=== PATIENT | male | born 1985 | race Two or more races ===

== ENCOUNTER 2017-04-28 19:42 | Inpatient (IN) | payer OTHER ==
[~2017-04-28] VITALS: Ht 175.3 cm; Wt 98.0 kg
--- NOTE | 2017-04-28 19:55 | PHYS DOC ---
Adult General Chief Complaint Chief Complaint: HYPERGLYCEMIA HPI HPI Patient is a 31 year old male who presents with blurry vision, generalized weakness, urinary frequency and excessive thirst. He states he symptoms been going on for last 2 weeks been getting worse. 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 He was called back today and tachycardia check at their office was read as "high". He denies any chest pain shortness of breath fevers chills nausea or vomiting. He denies any past medical history or allergies to medications. His cousin is being used as an mason tender restoration labor. Review of Systems Review of Systems Constitutional: Denies fever or chills [] Eyes: Positive for mild blurry vision, Denies redness, or eye pain [] HENT: Denies nasal congestion or sore throat [] Respiratory: Denies cough or shortness of breath [] Cardiovascular: No additional information not addressed in HPI [] GI: Denies abdominal pain, nausea, vomiting, bloody stools or diarrhea [] : Denies dysuria or hematuria [] Musculoskeletal: Denies back pain or joint pain [] Integument: Denies rash or skin lesions [] Neurologic: Denies headache, focal weakness or sensory changes [] Endocrine: Denies polyuria or polydipsia [] Current Medications Current Medications Current Medications Medications (Trade) Dose Ordered Sig/Khadar Start Time Stop Time Status Last Admin Dose Admin Sodium Chloride 1,000 ml @ 1,000 mls/hr 1X ONCE 04/28/17 20:45 04/28/17 21:44 Allergies Allergies Allergies Coded Allergies Type Severity Reaction Last Updated Verified No Known Drug Allergies 04/28/17 No Physical Exam Physical Exam Constitutional: Well developed, well nourished, no acute distress, non-toxic appearance. [] HENT: Normocephalic, atraumatic, bilateral external ears normal, oropharynx moist, no oral exudates, nose normal. [] Eyes: PERRLA, EOMI, conjunctiva normal, no discharge. [] Neck: Normal range of motion, no tenderness, supple, no stridor. [] Cardiovascular:Heart rate regular rhythm, no murmur [] Lungs & Thorax: Bilateral breath sounds clear to auscultation [] Abdomen: Bowel sounds normal, soft, no tenderness, no masses, no pulsatile masses. [] Skin: Warm, dry, no erythema, no rash. [] Back: No tenderness, no CVA tenderness. [] Extremities: No tenderness, no cyanosis, no clubbing, ROM intact, no edema. [] Neurologic: Alert and oriented X 3, normal motor function, normal sensory function, no focal deficits noted. [] Psychologic: Affect normal, judgement normal, mood normal. [] Current Patient Data Vital Signs Vital Signs Date Time Temp Pulse Resp B/P (MAP) Pulse Ox O2 Delivery O2 Flow Rate FiO2 04/28/17 19:56 99.6 91 17 151/90 (110) 95 Room Air 99.6 Lab Values Laboratory Tests Test 04/28/17 20:00 04/28/17 20:10 Urine Collection Type Unknown Urine Color Yellow Urine Clarity Clear Urine pH 6.0 Urine Specific [place] >=1.030 Urine Protein Negative mg/dL (NEG-TRACE) Urine Glucose (UA) >=1000 mg/dL (NEG) Urine Ketones (Stick) 15 mg/dL (NEG) Urine Blood Negative (NEG) Urine Nitrite Negative (NEG) Urine Bilirubin Negative (NEG) Urine Urobilinogen Dipstick 0.2 mg/dL (0.2 mg/dL) Urine Leukocyte Esterase Negative (NEG) Urine RBC Occ /HPF (0-2) Urine WBC 0 /HPF (0-4) Urine Bacteria 0 /HPF (0-FEW) Urine Opiates Screen Neg (NEG) Urine Methadone Screen Neg (NEG) Urine Barbiturates Neg (NEG) Urine Phencyclidine Screen Neg (NEG) Urine Amphetamine/Methamphetamine Neg (NEG) Urine Benzodiazepines Screen Neg (NEG) Urine Cocaine Screen Neg (NEG) Urine Cannabinoids Screen Neg (NEG) Urine Ethyl Alcohol Neg (NEG) White Blood Count 8.4 x10^3/uL (4.0-11.0) Red Blood Count 5.46 x10^6/uL (4.30-5.70) Hemoglobin 15.8 g/dL (13.0-17.5) Hematocrit 45.8 % (39.0-53.0) Mean Corpuscular Volume 84 fL (79-100) Mean Corpuscular Hemoglobin 29 pg (25-35) Mean Corpuscular Hemoglobin Concent 35 g/dL (31-37) Red Cell Distribution Width 12.5 % (11.5-14.5) Platelet Count 259 x10^3/uL (140-400) Neutrophils (%) (Auto) 62 % (31-73) Lymphocytes (%) (Auto) 30 % (24-48) Monocytes (%) (Auto) 7 % (0-9) Eosinophils (%) (Auto) 1 % (0-3) Basophils (%) (Auto) 1 % (0-3) Neutrophils # (Auto) 5.2 x10^3uL (1.8-7.7) Lymphocytes # (Auto) 2.5 x10^3/uL (1.0-4.8) Monocytes # (Auto) 0.5 x10^3/uL (0.0-1.1) Eosinophils # (Auto) 0.1 x10^3/uL (0.0-0.7) Basophils # (Auto) 0.0 x10^3/uL (0.0-0.2) Sodium Level 130 mmol/L (136-145) L Potassium Level 4.5 mmol/L (3.5-5.1) Chloride Level 92 mmol/L (98-107) L Carbon Dioxide Level 25 mmol/L (21-32) Anion Gap 13 (6-14) Blood Urea Nitrogen 19 mg/dL (8-26) Creatinine 1.0 mg/dL (0.7-1.3) Estimated GFR (Cockcroft-Gault) 88.3 Glucose Level 626 mg/dL (70-99) *H Calcium Level 9.8 mg/dL (8.5-10.1) Magnesium Level 2.0 mg/dL (1.8-2.4) Total Bilirubin 0.5 mg/dL (0.2-1.0) Direct Bilirubin 0.1 mg/dL (0.0-0.2) Aspartate Amino Transferase (AST) 57 U/L (15-37) H Alanine Aminotransferase (ALT) 152 U/L (16-63) H Alkaline Phosphatase 169 U/L (46-116) H Creatine Kinase 209 U/L (39-308) Creatine Kinase MB (Mass) 0.5 ng/mL (0.0-3.6) Creatine Kinase MB Relative Index 0.2 % (0-4) Troponin I Quantitative < 0.017 ng/mL (0.000-0.055) JG-Czd-G-Type Natriuretic Peptide 5 pg/mL (0-124) Total Protein 8.2 g/dL (6.4-8.2) Albumin 4.2 g/dL (3.4-5.0) Thyroid Stimulating Hormone (TSH) 2.621 uIU/mL (0.358-3.74) Laboratory Tests 04/28/17 20:10 Laboratory Tests 04/28/17 20:10 EKG EKG EKG shows sinus rhythm 3-87 beats were without any ST elevations or concerning T -wave inversions, left axis deviation, QTC 410 ms, as interpreted by me. Radiology/Procedures Radiology/Procedures One view chest x-ray did not show any focal consolidations, bony abnormalities, pneumothorax, as interpreted by me. Impressions: Hyperglycemia Course & Med Decision Making Course & Med Decision Making Pertinent Labs and Imaging studies reviewed. (See chart for details) EKG, chest x-ray are nonacute. Labs shows hyperglycemia with ketones without acidosis. Patient given 2 L normal saline and 10 units subcutaneous insulin. He is being admitted to the hospitalist in stable condition this time. Dragon Disclaimer Dragon Disclaimer This electronic medical record was generated, in whole or in part, using a voice recognition dictation system. Departure Departure Impression: Primary Impression: Hyperglycemia Disposition: ADMITTED INPATIENT Admitting Physician: Other Condition: STABLE ZEE MORALES MD Apr 28, 2017 19:55
[2017-04-28 20:29] LABS: BASO % 1 % (0-3); EOS % 1 % (0-3); HEMATOCRIT 45.8 % (39.0-53.0); HEMOGLOBIN 15.8 g/dL (13.0-17.5); LYMPH # 2.5 x10^3/uL (1.0-4.8); LYMPH % 30 % (24-48); MEAN CORPUSCULAR HEMOGLOBIN 29 pg (25-35); MEAN CORPUSCULAR HGB CONC 35 g/dL (31-37); MEAN CORPUSCULAR VOLUME 84 fL (79-100); MONO % 7 % (0-9); NEUT % 62 % (31-73); PLATELET COUNT 259 x10^3/uL (140-400); RED BLOOD COUNT 5.46 x10^6/uL (4.30-5.70); RED CELL DISTRIBUTION WIDTH 12.5 % (11.5-14.5); WHITE BLOOD COUNT 8.4 x10^3/uL (4.0-11.0)
[2017-04-28] MEDS ORDERED: IV NORMAL SALINE 1000ML BAG 1,000 ML IV ONE ×2 (20:30→20:45)
[2017-04-28 20:32] LABS: BILIRUBIN,URINE NEGATIVE (NEG); GLUCOSE,URINE >=1000 mg/dL (NEG); NITRITE,URINE NEGATIVE (NEG); PROTEIN,URINE NEGATIVE (NEG-TRACE); UROBILINOGEN,URINE 0.2 mg/dL (0.2 mg/dL)
[2017-04-28 20:38] LABS: BACTERIA,URINE 0 /HPF (0-FEW); BARBITURATES NEG (NEG); BENZODIAZEPINES NEG (NEG); CANNABINOIDS NEG (NEG); COCAINE NEG (NEG); METHADONE NEG (NEG); OPIATES NEG (NEG); PHENCYCLIDINE NEG (NEG); RBC,URINE OCC /HPF (0-2); WBC,URINE 0 /HPF (0-4)
--- NOTE | 2017-04-28 20:50 | EKG ---
[facility] [address] [place] [address] Test Date: 2017-04-28 Test Time: 20:28:36 Pat Name: ZULEIMA GUERRA Department: Room: Gender: M Avian Keeper: : 1985 Requested By: ZEE MORALES Order Number: [id number] Reading MD: Robbie Escalante Measurements Intervals [place] Rate: 87 P: 28 UT: 176 QRS: -9 QRSD: 86 T: 9 QT: 340 QTc: 410 Interpretive Statements SINUS RHYTHM NON-SPECIFIC ST/T CHANGES Electronically Signed On 05-03-2017 10:56:04 CDT by Robbie Escalante
[2017-04-28 20:53] LABS: ALBUMIN 4.2 g/dL (3.4-5.0); CALCIUM 9.8 mg/dL (8.5-10.1); DIRECT BILIRUBIN 0.1 mg/dL (0.0-0.2); GFR 88.3; POTASSIUM 4.5 mmol/L (3.5-5.1); TOTAL BILIRUBIN 0.5 mg/dL (0.2-1.0); TOTAL PROTEIN 8.2 g/dL (6.4-8.2)
[2017-04-28 21:02] LABS: CKMB MASS 0.5 ng/mL (0.0-3.6)
[2017-04-28] MEDS ORDERED: ONDANSETRON PF 4 MG/2 ML VIAL. IV PRN (21:30)
[2017-04-28] MEDS ORDERED: INSULIN REGULAR 100 UNIT/ML 10ML VIAL. SQ ONE (22:00)
[2017-04-28] MEDS ORDERED: METF500T9 PO (22:50)
[2017-04-28] MEDS ORDERED: SERT25TA4 PO (22:50)
[2017-04-28 22:51] VITALS: BP 134/91
[2017-04-28 22:53] VITALS: BP 134/91
[2017-04-29] MEDS ORDERED: DEXTROSE 50% 25 GM / 50ML DISP.SYRIN. IV PRN (00:15)
--- NOTE | 2017-04-29 01:35 | HP ---
ADMIT DATE: 04/29/2017 CHIEF COMPLAINT: Newly-diagnosed diabetes. HISTORY OF PRESENT ILLNESS: The patient is a 31-year-old [place] gentleman who presented to the Emergency Room from his primary care physician with newly-diagnosed diabetes and a finding of a blood sugar today of greater than 500. On further questioning, the patient actually had noted increased polydipsia and polyuria as well as some vague abdominal symptoms of weight loss that he cannot specify, but has noted mild nausea as well as occasional dizziness. He had seen his PCP recently and had been called back today to discuss the results of the finding that was elevated blood sugars. He was found with tachycardia prior as well, which is currently not present. When his repeat blood sugars were greater than 500 at the PCP's office, he was referred to the Emergency Room. PAST MEDICAL HISTORY: None. FAMILY HISTORY: Positive for diabetes in mother and siblings. SOCIAL HISTORY: Lives with 2 friends, smokes, also states that he quit today. He drinks beers occasionally, admits to about 3 beers once a month or so. ALLERGIES: No known drug allergies. HOME MEDICATIONS: Listed as metformin and sertraline, former was supposed to start today. REVIEW OF SYSTEMS: Positive as per HPI. Rest of organ system review shows no other complaints. PHYSICAL EXAMINATION: VITAL SIGNS: From today show a blood pressure of 134/91, heart rate of 78, respiratory rate at 18. He is afebrile. GENERAL: This is a 31-year-old [place] man, alert and oriented, in no acute distress. HEENT shows no scleral icterus, oral mucosa is moist. Neck is supple without lymphadenopathy. Lungs are clear to auscultation. Heart has regular rate and rhythm. Abdomen is obese, soft, nontender. Extremities show no edema. skin is warm, soft and dry. Neurologically, he is nonfocal. LABS: Glucose improved to 405. rest of labs reviewed. ASSESSMENT AND PLAN: Mr Morse is a 31 year-old [place] with newly-diagnosed diabetes mellitus. I do not have the hemoglobin A1c available at this time. I am not sure that it actually had been obtained at the PCP's office. We will obtain in the morning. In the meantime, we will start him on insulin sliding scale. We will increase his metformin to 1000 b.i.d. The patient would love to avoid needles as he is needle phobic. I discussed with him that although we may be able to avoid insulin, he will not be able to avoid blood sugar checks. We will have diabetic teaching done in hospital by the nurses. We will obtain additional labs including lipid profile in the morning as well. Ideally, he should be on aspirin, GERRY inhibitor, and statin as well. Unfortunately, I do not have a PCP's name. DENISHA BURNETT MD DR: KARINA/nts JOB#: [id number] / [id number]
[2017-04-29 02:52] VITALS: BP 140/79
--- NOTE | 2017-04-29 03:27 | ACF ---
Admission Forms Criteria GENERAL ADMISSION CRITERIA (Place 'X' for any and all applicable criteria): Admission is indicated for ANY ONE of the following: [ ]I. Hemodynamic instability as indicated by ANY ONE of the following(1)(2) (3)(4)(5): [ ]a) Vital sign abnormality not readily corrected by appropriate treatment within 12 to 24 hours indicated by ANY ONE of the following: [ ]i) Hypotension [ ]ii) Symptomatic Tachycardia unresponsive to treatment (eg , analgesia, fluids, sedation as indicated) [ ]iii) Orthostatic vital sign changes unresponsive to treatment (eg, fluids) [ ]b) Vital sign abnormality that is severe indicated by ANY ONE of the following: [ ]i) Inadequate perfusion indicated by ANY ONE of the following: [ ]1) Lactic acidosis (greater than 2 mmol/L) [ ]2) New abnormal capillary refill (greater than 3 seconds) [ ]3) Other metabolic acidosis (arterial pH less than 7.35) not otherwise explained [ ]4) Reduced urine output [ ]5) Altered mental status [ ]6) Myocardial Ischemia [ ]v) Mean arterial pressure[A] less than 60 mm Hg [ ]vi) Mean arterial pressure[A] less than 70 mm Hg after 30 minutes of appropriate treatment (eg, fluid resuscitation) [ ]vii) IV inotropic or vasopressor medication required to maintain adequate blood pressure or perfusion [ ]viii) Sustained heart rate greater than 120 beats per minute in adult or child 6 years or older[B]] [ ]II. Hypertension requiring inpatient treatment as indicated by ANY ONE of the following(6)(7)(8): [ ]a) SBP greater than 220 mm Hg or DBP greater than 120 mm Hg despite treatment [ ]b) SBP greater than 140 mm Hg or DBP greater than 100 mm Hg with evidence of acute end organ damage as indicated by ANY ONE of the following: [ ]i) Encephalopathy [ ]ii) Acute renal failure as indicated by new onset of ANY ONE of the following(9)(10)(11)(12)(13): [ ]1) A 3-fold rise in serum creatinine from baseline [ ]2) Serum creatinine greater than 4 mg/dL ( 354 micromoles/L) with acute rise greater than 0.5 mg/dL (44.2 micromoles/L) [ ]3) Reduction of more than 75% in estimated glomerular filtration rate from baseline [ ]4) Estimated glomerular filtration rate less than 35 mL/min/1.73m2 (0.59 mL/sec/1.73m2) in child up to 18 years of age [ ]5) Cessation of urine output indicated by ALL of the following: [ ]A. Adequate volume status [ ]B. Inadequate urine output as indicated by ANY ONE of the following: [ ]a. Urine output less than 0.3 mL/kg/hr for 24 hours [ ]b. Anuria (urine output less than 0.1 mL/kg/hr) for 12 hours [ ]iii) Aortic dissection [ ]iv) Myocardial ischemia [ ]v) Left ventricular heart failure [ ]vi) Retinal hemorrhage [ ]vii) Other significant finding [ ]c) Hypertension in child requiring inpatient treatment as indicated by ALL of the following(14)(15)(16): [ ]i) Outpatient treatment not effective, not available, or not appropriate [ ]ii) SBP or DBP greater than 95th percentile for age [ ]iii) Evidence of acute end organ damage as indicated by ANY ONE of the following: [ ]1) Altered mental status [ ]2) Acute renal failure as indicated by new onset of ANY ONE of the following(9)(10)(11)(12)(13): [ ]A. A 3-fold rise in serum creatinine from baseline [ ]B. Serum creatinine greater than 4 mg/dL (354 micromoles/L) with acute rise greater than 0.5 mg/dL (44.2 micromoles/L) [ ]C. Reduction of more than 75% in estimated glomerular filtration rate from baseline [ ]D. Estimated glomerular filtration rate less than 35 mL/min/1.73m2 (0.59 mL/sec/1.73m2)in child up to 18 years of age [ ]E. Cessation of urine output indicated by ALL of the following: [ ]a. Adequate volume status [ ]b. Inadequate urine output as indicated by ANY ONE of the following: [ ]1) Urine output less than 0.3 mL/kg/hr for 24 hours [ ]2) Anuria (urine output less than 0.1 mL/kg/hr) for 12 hours [ ]3) Severe headache [ ]4) Visual disturbance [ ]5) Retinal hemorrhage [ ]6) Other significant finding [ ]III. Acute cardiac or peripheral ischemia as indicated by ANY ONE of the following: [ ]a) Acute coronary syndrome(17)(18) [ ]b) Acute peripheral ischemia (eg, pulseless, cool, mottled, or cyanotic extremity)(19) [ ]IV. Cardiac arrhythmias or findings of immediate concern indicated by ANY ONE of the following(20)(21): [ ]a) Heart rhythms that are inherently dangerous or unstable indicated by ANY ONE of the following(22)(23)(24): [ ]i) Resuscitated ventricular fibrillation or cardiac arrest [ ]ii) Ventricular escape rhythm [ ]iii) Sustained ventricular tachycardia (30 seconds or more of ventricular rhythm at greater than 100 beats per minute) [ ]iv) Nonsustained ventricular tachycardia and ANY ONE of the following: [ ]1) Suspected cardiac ischemia as cause or consequence of ventricular tachycardia [ ]2) In setting of acute myocarditis [ ]b) Unstable cardiac conduction defects indicated by ANY ONE of the following(24)(25)(26): [ ]i) Type II second-degree atrioventricular block [ ]ii) Third-degree atrioventricular block [ ]iii) New-onset left bundle branch block with suspected myocardial ischemia [ ]c) Any heart rhythm and ANY ONE of the following(22)(23)(27)(28)( 29): [ ] i) Continuous long-term ECG monitoring needed (eg, initiation of drug requiring monitoring for more than 24 hours) [ ] ii) Patient has automatic implanted cardioverter defibrillator that is repeatedly firing, malfunctioning, or in need of immediate adjustment of settings beyond the scope of ambulatory or observation care. [ ]d) Heart rhythms of concern due to ANY ONE of the following: [ ]i) Hypotension [ ]ii) Respiratory distress [ ]iii) Association with other significant symptoms (eg, bradycardia with syncope or ongoing dizziness, supraventricular tachycardia with chest pain) (27)(28) (30) [ ] V. Severe heart failure as indicated by ANY ONE of the following ( 31)(32): [ ]a) Respiratory distress [ ]b) Hypotension [ ]c) Anasarca (refractory to outpatient therapy) [ ]d) Cardiac arrhythmias of immediate concern [ ]e) Myocardial ischemia [ ]. Respiratory abnormalities, including ANY ONE of the following(33)(34) (35)(36): [ ]a) Respiratory rate greater than 30 breaths per minute unresponsive to treatment [A] [ ]b) New saturation of arterial oxygen less than 90% [ ]c) New partial pressure of carbon dioxide greater than 44 mm Hg ( 5.9 kPa) [ ]d) Supplemental oxygen or respiratory treatments needed that are new or not performable at other levels of care [ ]e) New-onset cyanosis [ ]f) Inability to protect airway [ ]g) Chronic lung disease with severe deterioration (not responsive to emergency and observation care treatment as appropriate) as indicated by ANY ONE of the following(34)(36 ): [ ]i) SaO2 5% below baseline in patient with chronic hypoxemia [ ]ii) New requirement for supplemental oxygen to keep SaO2 at baseline or acceptable level [ ]iii) Required supplemental oxygen performable only in acute inpatient setting [ ]iv) Severe airflow or ventilation abnormalities [ ]v) Previously mobile patient unable to walk between rooms [ ]vi Inability to eat or sleep due to dyspnea [ ]vii) Rapid rate of exacerbation onset [ ]viii) Altered mental status ]VII. Severe airflow or ventilation abnormalities (not responsive to emergency and observation care treatment as appropriate) as indicated by ANY ONE of the following(33)(34)(35)(37): [ ]a) PCO2 greater than 42 mm Hg (5.6 kPa) and pH less than 7.35 (new ) [ ]b) Documented PCO2 increased more than 5 mm Hg (0.7 kPa) from disease baseline [ ]c) Airflow measurements [B] less than 60% of previous best or predicted (eg, peak expiratory flow rate less than 300 L/minute) despite intensive emergent treatment [C] [ ]d) Required respiratory treatments that are performable only in acute inpatient setting [ ]VIII. Impending or actual respiratory arrest ( Also use Respiratory Failure GRG for severe respiratory disease and long-term mechanical ventilation patients) [ ]IX. Neurologic abnormalities, including ANY ONE of the following: [ ]a) New findings that suggest ANY ONE of the following: [ ]i) INFANT BABYSIT[employer] infection(38) [ ]ii) Cerebral bleeding, ischemia, or vasospasm(39)(40) [ ]iii) Increased intracranial pressure, hydrocephalus, or cerebral edema(41)(42)(43) [ ]iv) Spinal cord injury(44) [ ]b) Uncontrolled seizures(45) [ ]c) New-onset coma (eg, Becki coma scale score less than 9) or unexplained abnormal mental status (eg, Becki coma scale score less than 14) [D](41)(46)(47) [ ]X. New-onset severe neurologic findings requiring inpatient care; examples include(42)(48)(49): [ ]a) Papilledema [ ]b) Cerebral edema [ ]c) Mass effect on CT scan [ ]XI. Suspected acute intra-abdominal process with peritoneal signs, abdominal mass, or similar findings (50)(51)(52) [ ]XII. Severe physiologic disorder remaining after emergency or observation level care (as appropriate) as indicated by ANY ONE of the following (53): [ ]a) Significant dehydration [ ]b) Diabetic ketoacidosis [ ]c) Hyperglycemic hyperosmolar state (eg, osmolality greater than 320 mOsm/kg (mmol/kg) [ ]d) Hypoglycemia [ ]e) Other (new) acid-base disorder with pH less than 7.35 or greater than 7.5(54) [ ]f) Thyroid storm (55) [ ]g) Myxedema coma (55) [ ]XIII. Abdominal abnormalities with ANY ONE of the following(56)(57): [ ]a) Absent bowel sounds with complete ileus [ ]b) Signs of intestinal obstruction or peritonitis [E] [ ]c) Nausea and vomiting that cannot be controlled with outpatient or observation care [ ]XIV. Acute renal failure as indicated by new onset of ANY ONE of the following(9)(10)(11)(12)(13): [ ]a) A 3-fold rise in serum creatinine from baseline [ ]b) Serum creatinine greater than 4 mg/dL (354 micromoles/L) with acute rise greater than 0.5 mg/dL (44.2 micromoles/L) [ ]c) Reduction of more than 75% in estimated glomerular filtration rate from baseline [ ]d) Estimated glomerular filtration rate less than 35 mL/min/ 1.73m2 (0.59 mL/sec/1.73m2) in child up to 18 years of age [ ]e) Cessation of urine output indicated by ALL of the following: [ ]i) Adequate volume status [ ]ii) Inadequate urine output as indicated by ANY ONE of the following: [ ]1) Urine output less than 0.3 mL/kg/hr for 24 hours [ ]2) Anuria (urine output less than 0.1 mL/kg/hr) for 12 hours [ ]XV. Significant uremic complications as indicated by ANY ONE of the following(58)(59)(60): [ ]a) Outpatient therapy is ineffective or not feasible for ANY ONE of the following: [ ]i) Severe heart failure [ ]ii) Severehypertension [ ]iii) Pleural effusion [ ]iv) Pericarditis or pericardial effusion [ ]b) Cardiac arrhythmias of immediate concern [ ]c) Intractable nausea or vomiting [ ]d) Recurrent seizures [ ]e) Encephalopathy [ ]f) Bleeding abnormalities (eg, platelet dysfunction) with active (eg, gastrointestinal) bleeding [ ]g) Dialysis indicated before long-term access or ambulatory arrangements can be made [ ]h) Significant metabolic or electrolyte abnormalities (eg, severe acidosis or hyperkalemia) [ ]XVI. High fever or other high-risk infection situation as indicated by ANY ONE of the following(61)(62)(63)(64): [ ]a) Outpatient and observation care antimicrobial treatment unavailable, not effective, or not appropriate [ ]b) Documented bacteremia [ ]c) Temperature greater than 40.5 degrees C (104.9 degrees F) ( oral) [ ]d) Temperature greater than 39.5 degrees C (103.1 degrees F) ( oral) or less than 36 degrees C (96.8 degrees F) (rectal) that does not respond to e treatment and observation care [ ] XVII. Temperature less than 95 degrees F (35 degrees C)(rectal)(65) [ ] XVIII. Severe nutritional abnormalities as indicated by ALL of the following (66)(67): [ ]a) Inability to tolerate or establish sufficient oral or other enteral nutrition in outpatient setting [ ]b) Parenteral nutrition regimen need that must be implemented on inpatient basis [ ] XIX. Severe electrolyte abnormalities indicated by ALL of the following(68) (69)(70): [ ]a) Electrolytes and associated findings are not as expected for patient baseline or acceptable treatment effects. [ ]b) Severe abnormalities indicated by ANY ONE of the following: [ ]i) Sodium less than 130 mEq/L (mmol/L) (new) [ ]ii)Sodium less than 135 mEq/L (mmol/L) with ANY ONE of the following: [ ]1) Uncorrectable (to near normal or chronic baseline) after trial of outpatient and emergency treatment [ ]2) Altered mental status [ ]3) Seizures [ ]4) Severe medical etiology requiring inpatient management (eg, heart failure, hypovolemia) [ ]iii) Sodium greater than 155 mEq/L (mmol/L) [ ]iv) Sodium greater than 150 mEq/L (mmol/L) with ANY ONE of the following: [ ]1) Uncorrectable (to near normal or chronic baseline) with outpatient and emergency treatment [ ]2) Altered mental status [ ]3) Seizures [ ]4) Severe medical etiology (eg, hypovolemia, diabetes insipidus) [ ]v) Potassium less than 2.5 mEq/L (mmol/L) despite outpatient and emergency treatment [ ]vi) Potassium less than 3 mEq/L (mmol/L) with ANY ONE of the following: [ ]1) Weakness [ ]2) Cardiac abnormality (eg, arrhythmia, conduction disturbance) [ ]3) Cardiac ischemia [ ]4) Ileus [ ]5) Ongoing medical cause requiring inpatient management (eg, acute renal wasting or SIADH) [ ]6) Other severe symptoms [ ]vii) Potassium greater than 6.5 mEq/L (mmol/L) [ ]viii) Potassium greater than 5 mEq/L (mmol/L) with ANY ONE of the following: [ ]1) Uncorrectable (to near normal or chronic baseline) with outpatient and emergency treatment [ ]2) Severe ECG findings [F] [ ]3) Acute worsening of renal failure (creatinine greater than 2.5 mg/dL (221 micromoles/L) or significant elevation for age and size) [ ]4) Severe weakness [ ]5) Severe medical etiology (eg, hemolysis, infection, drug overdose) [ ]ix) Calcium less than 7 mg/dL (1.75 mmol/L) despite outpatient and emergency treatment (72) [ ]x) Calcium less than 8 mg/dL (2 mmol/L) with significant symptoms or findings; examples include(72): [ ]1) Altered mental status [ ]2) Muscle spasms [ ]3) Seizures [ ]4) Breathing difficulty [ ]5) Cardiac abnormality (eg, arrhythmia or conduction disturbance) [ ]xi) Calcium greater than 14 mg/dL (3.5 mmol/L)(72) [ ]xii) Calcium greater than 12 mg/dL (3 mmol/L) with ANY ONE of the following(72): [ ]1) Uncorrectable (to near normal or chronic baseline) with outpatient and emergency treatment [ ]2) Significant dehydration or hypovolemia as indicated by ALL of the following(70)(73)(74): [ ]A. Not resolved with initial treatments [ ]B. Clinically significant dehydration as indicated by ANY ONE of the following: [ ]a. Vomiting refractory to outpatient treatment (ie, precluding oral rehydration) [ ]b. Inability to drink [ ]c. Hypernatremia or other electrolyte abnormality unable to be corrected with outpatient and emergency treatment [ ]d. Failure to remain hydrated with outpatient therapy [ ]e. Reduced urine output [ ]f. Hypotension [ ]g. Serious cause for dehydration requiring acute hospitalization (eg, bowel obstruction, increased intracranial pressure, infectious cause) [ ]h. Child with ANY ONE of the following(75): [ ]1) Severe abdominal tenderness [ ]2) Adequate care not available at home [ ]3) Severe dehydration ( greater than 9% loss of body weight) [ ]4) Significant symptoms or findings; examples include: [ ]A. Altered mental status [ ]B. Cardiac abnormality (eg, arrhythmia, conduction disturbance) [ ]C. Malignant etiology requiring inpatient treatment [ ]xiii) Phosphorus less than 1 mg/dL (0.32 mmol/L) [ ]xiv) Phosphorus less than 1.5 mg/dL (0.48 mmol/L) with ANY ONE of the following: [ ]1) Patient unresponsive to outpatient and emergency treatment [ ]2) Significant symptoms or findings; examples include: [ ]A. Weakness [ ]B. Altered mental status [ ]C. Breathing difficulty [ ]D. Seizures [ ]E. Rhabdomyolysis [ ]xv) Phosphorus greater than 10 mg/dL (3.2 mmol/L) [ ]xvi) Phosphorus greater than 4.5 mg/dL (1.45 mmol/L) (new) with ANY ONE of the following: [ ]1) Severe medical etiology (eg, crush injury, acute renal failure) [ ]2) Associated hypocalcemia with significant findings; examples include: [ ]A. Neurologic symptoms [ ]B. Altered mental status [ ]C. Muscle spasms [ ]D. Seizures [ ]E. Breathing difficulty [ ]F. Cardiac abnormality (eg, arrhythmia, conduction disturbance) [ ]xvii) Magnesium less than 1 mg/dL (0.41 mmol/L) [ ]xviii) Magnesium less than 1.5 mg/dL (0.62 mmol/L) with ANY ONE of the following: [ ]1) Patient unresponsive to outpatient and emergency treatment [ ]2) Associated hypocalcemia with significant findings; examples include: [ ]A. Altered mental status [ ]B. Muscle spasms [ ]C. Seizures [ ]D. Breathing difficulty [ ]E. Cardiac abnormality (eg, arrhythmia , conduction disturbance) [ ]3) Associated hypokalemia (potassium less than 3 mEq/L (mmol/L)) with risk of arrhythmia [ ]xix) Magnesium greater than 4 mEq/L (2 mmol/L) [ ]xx) Magnesium greater than 2.5 mEq/L (1.25 mmol/L) with significant symptoms or findings; examples include: [ ]1) Weakness [ ]2) Altered mental status [ ]3) Cardiac abnormality (eg, arrhythmia, conduction disturbance) [ ]4) Breathing difficulty [ ]5) Severe medical etiology (eg, renal failure, hypovolemia) [ ]xxi) Uric acid greater than 20 mg/dL (1190 micromoles/L)(76) [ ]xxii) Uric acid greater than 8 mg/dL (476 micromoles/L) with significant symptoms or findings of tumor lysis syndrome; examples include(76): [ ]1) Creatinine greater than 1.5 times upper limit of normal [ ]2) Cardiac abnormality (eg, arrhythmia, conduction disturbance) [ ]3) Seizure [ ]XX. Acute blood loss causing significant abnormality as indicated by ANY ONE of the following(77)(78): [ ]a) Hemoglobin less than 10 g/dL (100 g/L) (not baseline) [ ]b) Hematocrit less than 30% (0.30) (not baseline) [ ]c) Repeat hematocrit decreased more than 2% (0.02) [ ]d) Uncontrolled bleeding [ ]XXI. Severe anemia indicated by ANY ONE of the following(78)(79): [ ]a) Altered mental status [ ]b) Chest pain [ ]c) Exertional dyspnea [ ]d) Syncope [ ]e) Other findings suggesting inadequate perfusion [ ]f) Treatment with transfusion or volume replacement is ineffective at resolving ANY ONE of the following [G]: [ ]i) Tachycardia for age [ ]ii) Orthostatic vital sign changes as indicated by ANY ONE of the following(80): [ ]1) Fall in SBP of 20 mm Hg or more 1 to 3 minutes after patient sits or stands from recumbent position [ ]2) Fall in DBP of 10 mm Hg or more 1 to 3 minutes after patient sits or stands from recumbent position [ ]XXII. High-risk low platelet count as indicated by ANY ONE of the following( 81)(82): [ ]a) Severe or life-threatening bleeding (eg, intracranial, major gastrointestinal, or extensive mucosal bleeding), with any reduced platelet count [ ]b) Platelet count less than 20,000/mm3 (20 x109/L) with any active bleeding [ ]c) Platelet count less than 10,000/mm3 (10 x109/L) with minor purpura or petechiae [ ]d) Platelet count less than 5000/mm3 (5 x109/L) [ ]e) Low platelet count with hemolytic anemia [ ]XXIII. Disseminated intravascular coagulation(77)(83) [ ]XXIV. Severe adverse drug or systemic toxin reaction requiring inpatient treatment; examples include(84)(85): [ ]a) Serotonin syndrome(86) [ ]b) Neuroleptic malignant syndrome(86) [ ]c) Cholinergic syndrome with severe symptoms (eg, bronchorrhea, weakness, mental status changes, seizures) [ ]d) Sympathetic syndrome with severe symptoms (eg, seizures, mental status changes, cardiac dysrhythmias) [ ]e) Anticholinergic syndrome [ ]XXV. Severe pain requiring acute inpatient management as indicated by ALL of the following (87)(88)(89): [ ]a) Continuous or frequent (eg, every 2 to 4 hours) parenteral analgesics required [H] [ ]b) Rapid improvement expected from treatment or acute intervention (eg, surgery, anesthesia procedure) [ ]XXVI.Severe behavioral health issues judged unmanageable at a lower level of care (eg, residential) in a patient who is ANY ONE of the following(91) [ ]a) Acutely suicidal [ ]b) A danger to self (eg, self-mutilating or suicidal behavior) [ ]c) A danger to others (eg, assaultive or homicidal behavior) [ ]d) Incapacitated because of grave disability (eg, inability to provide for self at lower level of care) (92) [X]XXVII. Inpatient monitoring needed; examples include(1)(3)(87)(93)(94)(95)(96 ): [X]a) Vital signs, neurologic signs, or vascular checks more frequently than every 4 hours [ ]b) Cardiac or respiratory monitoring beyond the scope (eg, over 24 hours) of observation care [ ]c) Pulmonary artery catheter monitoring [ ]d) Suspected compartment syndrome(97) (98) [ ]e) Cerebral bleeding, hydrocephalus, or vasospasm monitoring [ ]f) Increased intracranial pressure or cerebral edema monitoring [ ]g) monitoring [ ]XXVIII. Treatment requiring inpatient care; examples include: [ ]a) IV fluid to replace significant ongoing losses (greater than 3 L/m2 per day)(53) [ ]b) High concentration oxygen (greater than 40%)(33)(99)(100) [ ]c) Frequent respiratory therapy (more frequently than every 4 hours) to maintain airflow rates greater than 60% of baseline(33)(99)(100) [ ]d) Epidural analgesia(87) [ ]e) IV anticoagulation, vasoactive, or antiarrhythmic medication(19 )(23) [ ]f) Acute thrombolytics (generally require 24 hours of observation )(101)(102) [ ]XXIX. Emergency procedures needed; examples include: [ ]a) Emergency inpatient surgery [ ]b) Temporary pacemaker placement(103) [ ]c) Chest tube placement with active evacuation (eg, suction, drainage)(104) [ ]d) Emergent cardioversion(105) [ ]e) Emergent cardiac or vascular procedures (eg, cardiac catheterization, angioplasty) (17)(18) [ ]f) Emergent dialysis access placement and institution(10)(106) [ ]g) Emergent pericardiocentesis(107) [ ]h) Emergent plasmapheresis or leukapheresis(83) [ ]i) Emergent tracheostomy The original [employer] content created by [employer] has been revised. The portions of the content which have been revised are identified through the use of italic text or in bold, and [email or web address] has neither reviewed nor approved the modified material. All other unmodified content is copyright [employer]. Please see references footnoted in the original [facility] edition 2016 Admission Criteria Met?: Yes SRINIVASA SHEPHERD Apr 29, 2017 03:27
[2017-04-29 06:51] LABS: BASO % 1 % (0-3); EOS % 2 % (0-3); HEMOGLOBIN 15.8 g/dL (13.0-17.5); LYMPH # 2.3 x10^3/uL (1.0-4.8); LYMPH % 29 % (24-48); MEAN CORPUSCULAR HEMOGLOBIN 29 pg (25-35); MEAN CORPUSCULAR HGB CONC 34 g/dL (31-37); MEAN CORPUSCULAR VOLUME 84 fL (79-100); MONO % 7 % (0-9); NEUT % 62 % (31-73); PLATELET COUNT 251 x10^3/uL (140-400); RED BLOOD COUNT 5.45 x10^6/uL (4.30-5.70); RED CELL DISTRIBUTION WIDTH 12.8 % (11.5-14.5); WHITE BLOOD COUNT 7.9 x10^3/uL (4.0-11.0)
[2017-04-29 07:00] VITALS: BP 117/78
[2017-04-29 07:14] LABS: CALCIUM 8.9 mg/dL (8.5-10.1); CREATININE 0.9 mg/dL (0.7-1.3); GFR 99.8
[2017-04-29 07:28] LABS: CHOLESTEROL 171 mg/dL (0-200); CHOLESTEROL/HDL RATIO 7.4; HDLC 23 mg/dL (40-60); NON-HDL CHOLESTEROL 148 mg/dL (0-129); TRIGLYCERIDES 616 mg/dL (0-150)
--- NOTE | 2017-04-29 07:57 | RAD ---
Indication hyperglycemia. A single view of the chest was obtained. No prior imaging is available. The heart and pulmonary vessels appear normal. The lungs are clear. There is no pleural fluid or pneumothorax. The bony structures appear grossly intact. IMPRESSION: No acute finding apparent in the chest
[2017-04-29] MEDS: ASPIRIN CHEWABLE 81 MG TABLET. PO SCH (08:21)
[2017-04-29] MEDS: LISINOPRIL 5 MG TABLET. PO SCH (08:22)
[2017-04-29] MEDS: INSULIN ASPART 300 UNITS/3 ML INSULN.PEN SQ SCH ×6 (08:44→21:32)
[2017-04-29 11:00] VITALS: BP 124/72
[2017-04-29] MEDS ORDERED: INSULIN ASPART 300 UNITS/3 ML INSULN.PEN SQ ONE ×2 (11:45→16:45)
--- NOTE | 2017-04-29 12:45 | PDOC ---
PROGRESS NOTES Chief Complaint Chief Complaint Hyperglycemia Hyperlipidemia History of Present Illness History of Present Illness Pt was sitting up in bed watching instructional video about diabetes. Pt was anxious re: future care of his diabetes Vitals Vitals Vital Signs Date Time Temp Pulse Resp B/P (MAP) Pulse Ox O2 Delivery O2 Flow Rate FiO2 04/29/17 11:00 97.9 80 20 124/72 (89) 97 Room Air 97.9 Physical Exam General: Alert, Oriented X3, Cooperative, No acute distress Heart: Regular rate, No murmurs Lungs: Other (no acute distress noted) Abdomen: Normal bowel sounds, Soft, No tenderness Extremities: No clubbing, No cyanosis Skin: No rashes, No breakdown Labs LABS Laboratory Tests Test 04/28/17 20:00 04/28/17 20:10 04/28/17 23:44 04/29/17 06:28 Urine Collection Type Unknown Urine Color Yellow Urine Clarity Clear Urine pH 6.0 Urine Specific [place] >=1.030 Urine Protein Negative mg/dL (NEG-TRACE) Urine Glucose (UA) >=1000 mg/dL (NEG) Urine Ketones (Stick) 15 mg/dL (NEG) Urine Blood Negative (NEG) Urine Nitrite Negative (NEG) Urine Bilirubin Negative (NEG) Urine Urobilinogen Dipstick 0.2 mg/dL (0.2 mg/dL) Urine Leukocyte Esterase Negative (NEG) Urine RBC Occ /HPF (0-2) Urine WBC 0 /HPF (0-4) Urine Bacteria 0 /HPF (0-FEW) Urine Opiates Screen Neg (NEG) Urine Methadone Screen Neg (NEG) Urine Barbiturates Neg (NEG) Urine Phencyclidine Screen Neg (NEG) Urine Amphetamine/Methamphetamine Neg (NEG) Urine Benzodiazepines Screen Neg (NEG) Urine Cocaine Screen Neg (NEG) Urine Cannabinoids Screen Neg (NEG) Urine Ethyl Alcohol Neg (NEG) White Blood Count 8.4 x10^3/uL (4.0-11.0) 7.9 x10^3/uL (4.0-11.0) Red Blood Count 5.46 x10^6/uL (4.30-5.70) 5.45 x10^6/uL (4.30-5.70) Hemoglobin 15.8 g/dL (13.0-17.5) 15.8 g/dL (13.0-17.5) Hematocrit 45.8 % (39.0-53.0) 46.0 % (39.0-53.0) Mean Corpuscular Volume 84 fL (79-100) 84 fL (79-100) Mean Corpuscular Hemoglobin 29 pg (25-35) 29 pg (25-35) Mean Corpuscular Hemoglobin Concent 35 g/dL (31-37) 34 g/dL (31-37) Red Cell Distribution Width 12.5 % (11.5-14.5) 12.8 % (11.5-14.5) Platelet Count 259 x10^3/uL (140-400) 251 x10^3/uL (140-400) Neutrophils (%) (Auto) 62 % (31-73) 62 % (31-73) Lymphocytes (%) (Auto) 30 % (24-48) 29 % (24-48) Monocytes (%) (Auto) 7 % (0-9) 7 % (0-9) Eosinophils (%) (Auto) 1 % (0-3) 2 % (0-3) Basophils (%) (Auto) 1 % (0-3) 1 % (0-3) Neutrophils # (Auto) 5.2 x10^3uL (1.8-7.7) 4.9 x10^3uL (1.8-7.7) Lymphocytes # (Auto) 2.5 x10^3/uL (1.0-4.8) 2.3 x10^3/uL (1.0-4.8) Monocytes # (Auto) 0.5 x10^3/uL (0.0-1.1) 0.6 x10^3/uL (0.0-1.1) Eosinophils # (Auto) 0.1 x10^3/uL (0.0-0.7) 0.1 x10^3/uL (0.0-0.7) Basophils # (Auto) 0.0 x10^3/uL (0.0-0.2) 0.0 x10^3/uL (0.0-0.2) Sodium Level 130 mmol/L (136-145) 137 mmol/L (136-145) Potassium Level 4.5 mmol/L (3.5-5.1) 4.0 mmol/L (3.5-5.1) Chloride Level 92 mmol/L (98-107) 102 mmol/L (98-107) Carbon Dioxide Level 25 mmol/L (21-32) 28 mmol/L (21-32) Anion Gap 13 (6-14) 7 (6-14) Blood Urea Nitrogen 19 mg/dL (8-26) 15 mg/dL (8-26) Creatinine 1.0 mg/dL (0.7-1.3) 0.9 mg/dL (0.7-1.3) Estimated GFR (Cockcroft-Gault) 88.3 99.8 Glucose Level 626 mg/dL (70-99) 319 mg/dL (70-99) Calcium Level 9.8 mg/dL (8.5-10.1) 8.9 mg/dL (8.5-10.1) Magnesium Level 2.0 mg/dL (1.8-2.4) Total Bilirubin 0.5 mg/dL (0.2-1.0) Direct Bilirubin 0.1 mg/dL (0.0-0.2) Aspartate Amino Transf (AST/SGOT) 57 U/L (15-37) Alanine Aminotransferase (ALT/SGPT) 152 U/L (16-63) Alkaline Phosphatase 169 U/L (46-116) Creatine Kinase 209 U/L (39-308) Creatine Kinase MB (Mass) 0.5 ng/mL (0.0-3.6) Creatine Kinase MB Relative Index 0.2 % (0-4) Troponin I Quantitative < 0.017 ng/mL (0.000-0.055) [id number]-Type Natriuretic Peptide 5 pg/mL (0-124) Total Protein 8.2 g/dL (6.4-8.2) Albumin 4.2 g/dL (3.4-5.0) Thyroid Stimulating Hormone (TSH) 2.621 uIU/mL (0.358-3.74) Glucose (Fingerstick) 329 mg/dL (70-99) Triglycerides Level 616 mg/dL (0-150) Cholesterol Level 171 mg/dL (0-200) LDL Cholesterol, Calculated mg/dL (0-100) VLDL Cholesterol, Calculated 123 mg/dL (0-40) Non-HDL Cholesterol Calculated 148 mg/dL (0-129) HDL Cholesterol 23 mg/dL (40-60) Cholesterol/HDL Ratio 7.4 Test 04/29/17 08:05 04/29/17 11:05 Glucose (Fingerstick) 278 mg/dL (70-99) 301 mg/dL (70-99) Review of Systems Review of Systems c/o fatigue c/o anxiety re: diabetes Assessment and Plan Assessmemt and Plan Hyperglycemia: continue to manage w/ meds. Hyperlipidemia POA: continue statins d/c when glucose <200. jeanette RN. Continue ASA Problems: Comment Review of Relevant I have reviewed the following items smiley (where applicable) has been applied. Labs Laboratory Tests Test 04/28/17 20:00 04/28/17 20:10 04/28/17 23:44 04/29/17 06:28 Urine Collection Type Unknown Urine Color Yellow Urine Clarity Clear Urine pH 6.0 Urine Specific [place] >=1.030 Urine Protein Negative mg/dL (NEG-TRACE) Urine Glucose (UA) >=1000 mg/dL (NEG) Urine Ketones (Stick) 15 mg/dL (NEG) Urine Blood Negative (NEG) Urine Nitrite Negative (NEG) Urine Bilirubin Negative (NEG) Urine Urobilinogen Dipstick 0.2 mg/dL (0.2 mg/dL) Urine Leukocyte Esterase Negative (NEG) Urine RBC Occ /HPF (0-2) Urine WBC 0 /HPF (0-4) Urine Bacteria 0 /HPF (0-FEW) Urine Opiates Screen Neg (NEG) Urine Methadone Screen Neg (NEG) Urine Barbiturates Neg (NEG) Urine Phencyclidine Screen Neg (NEG) Urine Amphetamine/Methamphetamine Neg (NEG) Urine Benzodiazepines Screen Neg (NEG) Urine Cocaine Screen Neg (NEG) Urine Cannabinoids Screen Neg (NEG) Urine Ethyl Alcohol Neg (NEG) White Blood Count 8.4 x10^3/uL (4.0-11.0) 7.9 x10^3/uL (4.0-11.0) Red Blood Count 5.46 x10^6/uL (4.30-5.70) 5.45 x10^6/uL (4.30-5.70) Hemoglobin 15.8 g/dL (13.0-17.5) 15.8 g/dL (13.0-17.5) Hematocrit 45.8 % (39.0-53.0) 46.0 % (39.0-53.0) Mean Corpuscular Volume 84 fL (79-100) 84 fL (79-100) Mean Corpuscular Hemoglobin 29 pg (25-35) 29 pg (25-35) Mean Corpuscular Hemoglobin Concent 35 g/dL (31-37) 34 g/dL (31-37) Red Cell Distribution Width 12.5 % (11.5-14.5) 12.8 % (11.5-14.5) Platelet Count 259 x10^3/uL (140-400) 251 x10^3/uL (140-400) Neutrophils (%) (Auto) 62 % (31-73) 62 % (31-73) Lymphocytes (%) (Auto) 30 % (24-48) 29 % (24-48) Monocytes (%) (Auto) 7 % (0-9) 7 % (0-9) Eosinophils (%) (Auto) 1 % (0-3) 2 % (0-3) Basophils (%) (Auto) 1 % (0-3) 1 % (0-3) Neutrophils # (Auto) 5.2 x10^3uL (1.8-7.7) 4.9 x10^3uL (1.8-7.7) Lymphocytes # (Auto) 2.5 x10^3/uL (1.0-4.8) 2.3 x10^3/uL (1.0-4.8) Monocytes # (Auto) 0.5 x10^3/uL (0.0-1.1) 0.6 x10^3/uL (0.0-1.1) Eosinophils # (Auto) 0.1 x10^3/uL (0.0-0.7) 0.1 x10^3/uL (0.0-0.7) Basophils # (Auto) 0.0 x10^3/uL (0.0-0.2) 0.0 x10^3/uL (0.0-0.2) Sodium Level 130 mmol/L (136-145) 137 mmol/L (136-145) Potassium Level 4.5 mmol/L (3.5-5.1) 4.0 mmol/L (3.5-5.1) Chloride Level 92 mmol/L (98-107) 102 mmol/L (98-107) Carbon Dioxide Level 25 mmol/L (21-32) 28 mmol/L (21-32) Anion Gap 13 (6-14) 7 (6-14) Blood Urea Nitrogen 19 mg/dL (8-26) 15 mg/dL (8-26) Creatinine 1.0 mg/dL (0.7-1.3) 0.9 mg/dL (0.7-1.3) Estimated GFR (Cockcroft-Gault) 88.3 99.8 Glucose Level 626 mg/dL (70-99) 319 mg/dL (70-99) Calcium Level 9.8 mg/dL (8.5-10.1) 8.9 mg/dL (8.5-10.1) Magnesium Level 2.0 mg/dL (1.8-2.4) Total Bilirubin 0.5 mg/dL (0.2-1.0) Direct Bilirubin 0.1 mg/dL (0.0-0.2) Aspartate Amino Transf (AST/SGOT) 57 U/L (15-37) Alanine Aminotransferase (ALT/SGPT) 152 U/L (16-63) Alkaline Phosphatase 169 U/L (46-116) Creatine Kinase 209 U/L (39-308) Creatine Kinase MB (Mass) 0.5 ng/mL (0.0-3.6) Creatine Kinase MB Relative Index 0.2 % (0-4) Troponin I Quantitative < 0.017 ng/mL (0.000-0.055) [id number]-Type Natriuretic Peptide 5 pg/mL (0-124) Total Protein 8.2 g/dL (6.4-8.2) Albumin 4.2 g/dL (3.4-5.0) Thyroid Stimulating Hormone (TSH) 2.621 uIU/mL (0.358-3.74) Glucose (Fingerstick) 329 mg/dL (70-99) Triglycerides Level 616 mg/dL (0-150) Cholesterol Level 171 mg/dL (0-200) LDL Cholesterol, Calculated mg/dL (0-100) VLDL Cholesterol, Calculated 123 mg/dL (0-40) Non-HDL Cholesterol Calculated 148 mg/dL (0-129) HDL Cholesterol 23 mg/dL (40-60) Cholesterol/HDL Ratio 7.4 Test 04/29/17 08:05 04/29/17 11:05 Glucose (Fingerstick) 278 mg/dL (70-99) 301 mg/dL (70-99) Laboratory Tests Test 04/28/17 20:00 04/28/17 20:10 04/28/17 23:44 04/29/17 06:28 Urine Collection Type Unknown Urine Color Yellow Urine Clarity Clear Urine pH 6.0 Urine Specific [place] >=1.030 Urine Protein Negative mg/dL (NEG-TRACE) Urine Glucose (UA) >=1000 mg/dL (NEG) Urine Ketones (Stick) 15 mg/dL (NEG) Urine Blood Negative (NEG) Urine Nitrite Negative (NEG) Urine Bilirubin Negative (NEG) Urine Urobilinogen Dipstick 0.2 mg/dL (0.2 mg/dL) Urine Leukocyte Esterase Negative (NEG) Urine RBC Occ /HPF (0-2) Urine WBC 0 /HPF (0-4) Urine Bacteria 0 /HPF (0-FEW) Urine Opiates Screen Neg (NEG) Urine Methadone Screen Neg (NEG) Urine Barbiturates Neg (NEG) Urine Phencyclidine Screen Neg (NEG) Urine Amphetamine/Methamphetamine Neg (NEG) Urine Benzodiazepines Screen Neg (NEG) Urine Cocaine Screen Neg (NEG) Urine Cannabinoids Screen Neg (NEG) Urine Ethyl Alcohol Neg (NEG) White Blood Count 8.4 x10^3/uL (4.0-11.0) 7.9 x10^3/uL (4.0-11.0) Red Blood Count 5.46 x10^6/uL (4.30-5.70) 5.45 x10^6/uL (4.30-5.70) Hemoglobin 15.8 g/dL (13.0-17.5) 15.8 g/dL (13.0-17.5) Hematocrit 45.8 % (39.0-53.0) 46.0 % (39.0-53.0) Mean Corpuscular Volume 84 fL (79-100) 84 fL (79-100) Mean Corpuscular Hemoglobin 29 pg (25-35) 29 pg (25-35) Mean Corpuscular Hemoglobin Concent 35 g/dL (31-37) 34 g/dL (31-37) Red Cell Distribution Width 12.5 % (11.5-14.5) 12.8 % (11.5-14.5) Platelet Count 259 x10^3/uL (140-400) 251 x10^3/uL (140-400) Neutrophils (%) (Auto) 62 % (31-73) 62 % (31-73) Lymphocytes (%) (Auto) 30 % (24-48) 29 % (24-48) Monocytes (%) (Auto) 7 % (0-9) 7 % (0-9) Eosinophils (%) (Auto) 1 % (0-3) 2 % (0-3) Basophils (%) (Auto) 1 % (0-3) 1 % (0-3) Neutrophils # (Auto) 5.2 x10^3uL (1.8-7.7) 4.9 x10^3uL (1.8-7.7) Lymphocytes # (Auto) 2.5 x10^3/uL (1.0-4.8) 2.3 x10^3/uL (1.0-4.8) Monocytes # (Auto) 0.5 x10^3/uL (0.0-1.1) 0.6 x10^3/uL (0.0-1.1) Eosinophils # (Auto) 0.1 x10^3/uL (0.0-0.7) 0.1 x10^3/uL (0.0-0.7) Basophils # (Auto) 0.0 x10^3/uL (0.0-0.2) 0.0 x10^3/uL (0.0-0.2) Sodium Level 130 mmol/L (136-145) 137 mmol/L (136-145) Potassium Level 4.5 mmol/L (3.5-5.1) 4.0 mmol/L (3.5-5.1) Chloride Level 92 mmol/L (98-107) 102 mmol/L (98-107) Carbon Dioxide Level 25 mmol/L (21-32) 28 mmol/L (21-32) Anion Gap 13 (6-14) 7 (6-14) Blood Urea Nitrogen 19 mg/dL (8-26) 15 mg/dL (8-26) Creatinine 1.0 mg/dL (0.7-1.3) 0.9 mg/dL (0.7-1.3) Estimated GFR (Cockcroft-Gault) 88.3 99.8 Glucose Level 626 mg/dL (70-99) 319 mg/dL (70-99) Calcium Level 9.8 mg/dL (8.5-10.1) 8.9 mg/dL (8.5-10.1) Magnesium Level 2.0 mg/dL (1.8-2.4) Total Bilirubin 0.5 mg/dL (0.2-1.0) Direct Bilirubin 0.1 mg/dL (0.0-0.2) Aspartate Amino Transf (AST/SGOT) 57 U/L (15-37) Alanine Aminotransferase (ALT/SGPT) 152 U/L (16-63) Alkaline Phosphatase 169 U/L (46-116) Creatine Kinase 209 U/L (39-308) Creatine Kinase MB (Mass) 0.5 ng/mL (0.0-3.6) Creatine Kinase MB Relative Index 0.2 % (0-4) Troponin I Quantitative < 0.017 ng/mL (0.000-0.055) VB-[id number]-[id number]-Type Natriuretic Peptide 5 pg/mL (0-124) Total Protein 8.2 g/dL (6.4-8.2) Albumin 4.2 g/dL (3.4-5.0) Thyroid Stimulating Hormone (TSH) 2.621 uIU/mL (0.358-3.74) Glucose (Fingerstick) 329 mg/dL (70-99) Triglycerides Level 616 mg/dL (0-150) Cholesterol Level 171 mg/dL (0-200) LDL Cholesterol, Calculated mg/dL (0-100) VLDL Cholesterol, Calculated 123 mg/dL (0-40) Non-HDL Cholesterol Calculated 148 mg/dL (0-129) HDL Cholesterol 23 mg/dL (40-60) Cholesterol/HDL Ratio 7.4 Test 04/29/17 08:05 04/29/17 11:05 Glucose (Fingerstick) 278 mg/dL (70-99) 301 mg/dL (70-99) Medications Current Medications Sodium Chloride 1,000 ml @ 1,000 mls/hr 1X ONCE IV Last administered on t 20:28; Start 04/28/17 at 20:30; Stop 04/28/17 at 21:29; Status DC Sodium Chloride 1,000 ml @ 1,000 mls/hr 1X ONCE IV Last administered on 21:31; Start 04/28/17 at 20:45; Stop 04/28/17 at 21:44; Status DC Insulin Human Regular (NovoLIN R VIAL) 10 unit 1X ONCE SQ Last administered on 04/28/17 21:59; Start 04/28/17 at 22:00; Stop 04/28/17 at 22:01; Status DC Ondansetron HCl (Zofran) 4 mg PRN Q8HRS PRN IV NAUSEA/VOMITING; Start 04/28/17 at 21:30; Stop 04/29/17 at 21:29 Sertraline HCl (Zoloft) 25 mg HS PO ; Start 04/29/17 at 21:00 Insulin Aspart (NovoLOG) 0-9 UNITS TIDWMEALS SQ Last administered on 04/29/17 08:44; Start 04/29/17 at 08:00 Dextrose (Dextrose 50%-Water Syringe) 12.5 gm PRN Q15MIN PRN IV SEE COMMENTS; Start 04/29/17 at 00:15 Metformin HCl (Glucophage) 1,000 mg BIDWMEALS PO Last administered on 08:20; Start 04/29/17 at 08:00; Stop 04/29/17 at 11:31; Status DC Aspirin (Children'S Aspirin) 81 mg DAILYWBKFT PO Last administered on 08:21; Start 04/29/17 at 08:00 Lisinopril (Prinivil) 5 mg DAILY PO Last administered on 04/29/17 08:22; Start 04/29/17 at 09:00 Insulin Aspart (NovoLOG) 10 units TIDAC SQ ; Start 04/29/17 at 11:30 Insulin Aspart (NovoLOG) 20 units 1X ONCE SQ Last administered on 04/29/17 11 :42; Start 04/29/17 at 11:45; Stop 04/29/17 at 11:46; Status DC Insulin Detemir (Levemir) 20 units QHS SQ ; Start 04/29/17 at 21:00 Atorvastatin Calcium (Lipitor) 20 mg QHS PO ; Start 04/29/17 at 21:00 Active Scripts Active Reported Sertraline Hcl 25 Mg Tablet 25 Mg PO HS Vitals/I & O Vital Sign - Last 24 Hours 04/28/17 04/28/17 04/28/17 04/28/17 19:56 21:43 22:51 22:53 Temp 99.6 98.4 98.4 99.6 98.4 98.4 Pulse 91 63 78 78 Resp 17 17 18 18 B/P (MAP) 151/90 (110) 127/82 (97) 134/91 (105) 134/91 (105) Pulse Ox 95 99 96 96 O2 Delivery Room Air Room Air Room Air 04/29/17 04/29/17 04/29/17 04/29/17 02:52 07:00 08:22 11:00 Temp 97.5 97.7 97.9 97.5 97.7 97.9 Pulse 87 76 76 80 Resp 16 18 20 B/P (MAP) 140/79 (99) 117/78 (91) 117/78 124/72 (89) Pulse Ox 94 97 97 O2 Delivery Room Air Room Air Room Air Intake and Output 04/29/17 04/29/17 04/30/17 15:00 23:00 07:00 Intake Total 500 ml Balance 500 ml SALVADOR GIL III DO Apr 29, 2017 12:45
[2017-04-29 15:00] VITALS: BP 117/70
[2017-04-29] MEDS ORDERED: ATORVASTATIN CALCIUM 20 MG TABLET PO SCH (21:00)
[2017-04-29] MEDS ORDERED: SERTRALINE 25 MG TABLET. PO SCH (21:00)
[2017-04-29] MEDS ORDERED: INSULIN DETEMIR 300 UNITS/3 ML INSULN.PEN. SQ SCH ×2 (21:00)
[2017-04-29 23:00] VITALS: BP 115/73
[2017-04-30 03:01] VITALS: BP 108/64
[2017-04-30 04:43] LABS: BASO # 0.1 x10^3/uL (0.0-0.2); BASO % 1 % (0-3); EOS % 2 % (0-3); HEMATOCRIT 45.7 % (39.0-53.0); HEMOGLOBIN 15.6 g/dL (13.0-17.5); LYMPH # 3.2 x10^3/uL (1.0-4.8); LYMPH % 31 % (24-48); MEAN CORPUSCULAR HEMOGLOBIN 29 pg (25-35); MEAN CORPUSCULAR HGB CONC 34 g/dL (31-37); MEAN CORPUSCULAR VOLUME 84 fL (79-100); MONO % 7 % (0-9); NEUT % 59 % (31-73); PLATELET COUNT 248 x10^3/uL (140-400); RED BLOOD COUNT 5.42 x10^6/uL (4.30-5.70); WHITE BLOOD COUNT 10.2 x10^3/uL (4.0-11.0)
[2017-04-30 05:00] LABS: CALCIUM 8.5 mg/dL (8.5-10.1); GFR 88.3; POTASSIUM 3.6 mmol/L (3.5-5.1)
[2017-04-30 07:00] VITALS: BP 121/71
[2017-04-30] MEDS ORDERED: INSULIN ASPART 300 UNITS/3 ML INSULN.PEN SQ SCH (07:30)
[2017-04-30] MEDS: INSULIN ASPART 300 UNITS/3 ML INSULN.PEN SQ SCH ×6 (08:00→17:10)
[2017-04-30] MEDS: LISINOPRIL 5 MG TABLET. PO SCH (08:27)
[2017-04-30] MEDS: ASPIRIN CHEWABLE 81 MG TABLET. PO SCH (08:27)
[2017-04-30] MEDS ORDERED: INSULIN ASPART 300 UNITS/3 ML INSULN.PEN SQ STA (10:18)
[2017-04-30] MEDS: glyBURIDE 5 MG TABLET PO SCH ×2 (10:42→17:00)
[2017-04-30 11:00] VITALS: BP 126/66
--- NOTE | 2017-04-30 11:24 | PDOC ---
PROGRESS NOTES Chief Complaint Chief Complaint Hyperglycemia Hyperlipidemia History of Present Illness History of Present Illness Pt was sitting at side of bed. d/w nurse and pts glucose level was checked in the room. Measured to be 421 Vitals Vitals Vital Signs Date Time Temp Pulse Resp B/P (MAP) Pulse Ox O2 Delivery O2 Flow Rate FiO2 04/30/17 08:27 93 121/71 04/30/17 08:00 Room Air 04/30/17 07:00 96.6 18 98 96.6 Physical Exam General: Alert, Oriented X3, Cooperative, No acute distress Heart: Regular rate, No murmurs Lungs: Clear, Other (no acute distress noted) Abdomen: Normal bowel sounds, Soft, No tenderness Extremities: No clubbing, No cyanosis Skin: No rashes, No breakdown Labs LABS Laboratory Tests Test 04/29/17 16:00 04/29/17 19:58 04/30/17 00:25 04/30/17 02:08 Glucose (Fingerstick) 260 mg/dL (70-99) 281 mg/dL (70-99) 247 mg/dL (70-99) 289 mg/dL (70-99) Test 04/30/17 03:43 04/30/17 07:17 04/30/17 10:17 White Blood Count 10.2 x10^3/uL (4.0-11.0) Red Blood Count 5.42 x10^6/uL (4.30-5.70) Hemoglobin 15.6 g/dL (13.0-17.5) Hematocrit 45.7 % (39.0-53.0) Mean Corpuscular Volume 84 fL (79-100) Mean Corpuscular Hemoglobin 29 pg (25-35) Mean Corpuscular Hemoglobin Concent 34 g/dL (31-37) Red Cell Distribution Width 13.0 % (11.5-14.5) Platelet Count 248 x10^3/uL (140-400) Neutrophils (%) (Auto) 59 % (31-73) Lymphocytes (%) (Auto) 31 % (24-48) Monocytes (%) (Auto) 7 % (0-9) Eosinophils (%) (Auto) 2 % (0-3) Basophils (%) (Auto) 1 % (0-3) Neutrophils # (Auto) 6.1 x10^3uL (1.8-7.7) Lymphocytes # (Auto) 3.2 x10^3/uL (1.0-4.8) Monocytes # (Auto) 0.7 x10^3/uL (0.0-1.1) Eosinophils # (Auto) 0.2 x10^3/uL (0.0-0.7) Basophils # (Auto) 0.1 x10^3/uL (0.0-0.2) Sodium Level 137 mmol/L (136-145) Potassium Level 3.6 mmol/L (3.5-5.1) Chloride Level 101 mmol/L (98-107) Carbon Dioxide Level 27 mmol/L (21-32) Anion Gap 9 (6-14) Blood Urea Nitrogen 22 mg/dL (8-26) Creatinine 1.0 mg/dL (0.7-1.3) Estimated GFR (Cockcroft-Gault) 88.3 Glucose Level 259 mg/dL (70-99) Calcium Level 8.5 mg/dL (8.5-10.1) Glucose (Fingerstick) 258 mg/dL (70-99) 421 mg/dL (70-99) Review of Systems Review of Systems c/o hunger c/o fatigue Assessment and Plan Assessmemt and Plan Hyperglycemia: glucose measured to be 421. Added Novolog & Glyburide Hyperlipidemia POA: continue statins d/c when glucose <200. jeanette RN. Continue ASA Problems: Comment Review of Relevant I have reviewed the following items smiley (where applicable) has been applied. Labs Laboratory Tests Test 04/28/17 20:00 04/28/17 20:10 04/28/17 23:44 04/29/17 06:28 Urine Collection Type Unknown Urine Color Yellow Urine Clarity Clear Urine pH 6.0 Urine Specific [place] >=1.030 Urine Protein Negative mg/dL (NEG-TRACE) Urine Glucose (UA) >=1000 mg/dL (NEG) Urine Ketones (Stick) 15 mg/dL (NEG) Urine Blood Negative (NEG) Urine Nitrite Negative (NEG) Urine Bilirubin Negative (NEG) Urine Urobilinogen Dipstick 0.2 mg/dL (0.2 mg/dL) Urine Leukocyte Esterase Negative (NEG) Urine RBC Occ /HPF (0-2) Urine WBC 0 /HPF (0-4) Urine Bacteria 0 /HPF (0-FEW) Urine Opiates Screen Neg (NEG) Urine Methadone Screen Neg (NEG) Urine Barbiturates Neg (NEG) Urine Phencyclidine Screen Neg (NEG) Urine Amphetamine/Methamphetamine Neg (NEG) Urine Benzodiazepines Screen Neg (NEG) Urine Cocaine Screen Neg (NEG) Urine Cannabinoids Screen Neg (NEG) Urine Ethyl Alcohol Neg (NEG) White Blood Count 8.4 x10^3/uL (4.0-11.0) 7.9 x10^3/uL (4.0-11.0) Red Blood Count 5.46 x10^6/uL (4.30-5.70) 5.45 x10^6/uL (4.30-5.70) Hemoglobin 15.8 g/dL (13.0-17.5) 15.8 g/dL (13.0-17.5) Hematocrit 45.8 % (39.0-53.0) 46.0 % (39.0-53.0) Mean Corpuscular Volume 84 fL (79-100) 84 fL (79-100) Mean Corpuscular Hemoglobin 29 pg (25-35) 29 pg (25-35) Mean Corpuscular Hemoglobin Concent 35 g/dL (31-37) 34 g/dL (31-37) Red Cell Distribution Width 12.5 % (11.5-14.5) 12.8 % (11.5-14.5) Platelet Count 259 x10^3/uL (140-400) 251 x10^3/uL (140-400) Neutrophils (%) (Auto) 62 % (31-73) 62 % (31-73) Lymphocytes (%) (Auto) 30 % (24-48) 29 % (24-48) Monocytes (%) (Auto) 7 % (0-9) 7 % (0-9) Eosinophils (%) (Auto) 1 % (0-3) 2 % (0-3) Basophils (%) (Auto) 1 % (0-3) 1 % (0-3) Neutrophils # (Auto) 5.2 x10^3uL (1.8-7.7) 4.9 x10^3uL (1.8-7.7) Lymphocytes # (Auto) 2.5 x10^3/uL (1.0-4.8) 2.3 x10^3/uL (1.0-4.8) Monocytes # (Auto) 0.5 x10^3/uL (0.0-1.1) 0.6 x10^3/uL (0.0-1.1) Eosinophils # (Auto) 0.1 x10^3/uL (0.0-0.7) 0.1 x10^3/uL (0.0-0.7) Basophils # (Auto) 0.0 x10^3/uL (0.0-0.2) 0.0 x10^3/uL (0.0-0.2) Sodium Level 130 mmol/L (136-145) 137 mmol/L (136-145) Potassium Level 4.5 mmol/L (3.5-5.1) 4.0 mmol/L (3.5-5.1) Chloride Level 92 mmol/L (98-107) 102 mmol/L (98-107) Carbon Dioxide Level 25 mmol/L (21-32) 28 mmol/L (21-32) Anion Gap 13 (6-14) 7 (6-14) Blood Urea Nitrogen 19 mg/dL (8-26) 15 mg/dL (8-26) Creatinine 1.0 mg/dL (0.7-1.3) 0.9 mg/dL (0.7-1.3) Estimated GFR (Cockcroft-Gault) 88.3 99.8 Glucose Level 626 mg/dL (70-99) 319 mg/dL (70-99) Calcium Level 9.8 mg/dL (8.5-10.1) 8.9 mg/dL (8.5-10.1) Magnesium Level 2.0 mg/dL (1.8-2.4) Total Bilirubin 0.5 mg/dL (0.2-1.0) Direct Bilirubin 0.1 mg/dL (0.0-0.2) Aspartate Amino Transf (AST/SGOT) 57 U/L (15-37) Alanine Aminotransferase (ALT/SGPT) 152 U/L (16-63) Alkaline Phosphatase 169 U/L (46-116) Creatine Kinase 209 U/L (39-308) Creatine Kinase MB (Mass) 0.5 ng/mL (0.0-3.6) Creatine Kinase MB Relative Index 0.2 % (0-4) Troponin I Quantitative < 0.017 ng/mL (0.000-0.055) ZB-Mqp-N-Type Natriuretic Peptide 5 pg/mL (0-124) Total Protein 8.2 g/dL (6.4-8.2) Albumin 4.2 g/dL (3.4-5.0) Thyroid Stimulating Hormone (TSH) 2.621 uIU/mL (0.358-3.74) Glucose (Fingerstick) 329 mg/dL (70-99) Hemoglobin A1c 12.0 % (4.8-5.6) Triglycerides Level 616 mg/dL (0-150) Cholesterol Level 171 mg/dL (0-200) LDL Cholesterol, Calculated mg/dL (0-100) VLDL Cholesterol, Calculated 123 mg/dL (0-40) Non-HDL Cholesterol Calculated 148 mg/dL (0-129) HDL Cholesterol 23 mg/dL (40-60) Cholesterol/HDL Ratio 7.4 Test 04/29/17 08:05 04/29/17 11:05 04/29/17 16:00 04/29/17 19:58 Glucose (Fingerstick) 278 mg/dL (70-99) 301 mg/dL (70-99) 260 mg/dL (70-99) 281 mg/dL (70-99) Test 04/30/17 00:25 04/30/17 02:08 04/30/17 03:43 04/30/17 07:17 Glucose (Fingerstick) 247 mg/dL (70-99) 289 mg/dL (70-99) 258 mg/dL (70-99) White Blood Count 10.2 x10^3/uL (4.0-11.0) Red Blood Count 5.42 x10^6/uL (4.30-5.70) Hemoglobin 15.6 g/dL (13.0-17.5) Hematocrit 45.7 % (39.0-53.0) Mean Corpuscular Volume 84 fL (79-100) Mean Corpuscular Hemoglobin 29 pg (25-35) Mean Corpuscular Hemoglobin Concent 34 g/dL (31-37) Red Cell Distribution Width 13.0 % (11.5-14.5) Platelet Count 248 x10^3/uL (140-400) Neutrophils (%) (Auto) 59 % (31-73) Lymphocytes (%) (Auto) 31 % (24-48) Monocytes (%) (Auto) 7 % (0-9) Eosinophils (%) (Auto) 2 % (0-3) Basophils (%) (Auto) 1 % (0-3) Neutrophils # (Auto) 6.1 x10^3uL (1.8-7.7) Lymphocytes # (Auto) 3.2 x10^3/uL (1.0-4.8) Monocytes # (Auto) 0.7 x10^3/uL (0.0-1.1) Eosinophils # (Auto) 0.2 x10^3/uL (0.0-0.7) Basophils # (Auto) 0.1 x10^3/uL (0.0-0.2) Sodium Level 137 mmol/L (136-145) Potassium Level 3.6 mmol/L (3.5-5.1) Chloride Level 101 mmol/L (98-107) Carbon Dioxide Level 27 mmol/L (21-32) Anion Gap 9 (6-14) Blood Urea Nitrogen 22 mg/dL (8-26) Creatinine 1.0 mg/dL (0.7-1.3) Estimated GFR (Cockcroft-Gault) 88.3 Glucose Level 259 mg/dL (70-99) Calcium Level 8.5 mg/dL (8.5-10.1) Test 04/30/17 10:17 Glucose (Fingerstick) 421 mg/dL (70-99) Laboratory Tests Test 04/29/17 16:00 04/29/17 19:58 04/30/17 00:25 04/30/17 02:08 Glucose (Fingerstick) 260 mg/dL (70-99) 281 mg/dL (70-99) 247 mg/dL (70-99) 289 mg/dL (70-99) Test 04/30/17 03:43 04/30/17 07:17 04/30/17 10:17 White Blood Count 10.2 x10^3/uL (4.0-11.0) Red Blood Count 5.42 x10^6/uL (4.30-5.70) Hemoglobin 15.6 g/dL (13.0-17.5) Hematocrit 45.7 % (39.0-53.0) Mean Corpuscular Volume 84 fL (79-100) Mean Corpuscular Hemoglobin 29 pg (25-35) Mean Corpuscular Hemoglobin Concent 34 g/dL (31-37) Red Cell Distribution Width 13.0 % (11.5-14.5) Platelet Count 248 x10^3/uL (140-400) Neutrophils (%) (Auto) 59 % (31-73) Lymphocytes (%) (Auto) 31 % (24-48) Monocytes (%) (Auto) 7 % (0-9) Eosinophils (%) (Auto) 2 % (0-3) Basophils (%) (Auto) 1 % (0-3) Neutrophils # (Auto) 6.1 x10^3uL (1.8-7.7) Lymphocytes # (Auto) 3.2 x10^3/uL (1.0-4.8) Monocytes # (Auto) 0.7 x10^3/uL (0.0-1.1) Eosinophils # (Auto) 0.2 x10^3/uL (0.0-0.7) Basophils # (Auto) 0.1 x10^3/uL (0.0-0.2) Sodium Level 137 mmol/L (136-145) Potassium Level 3.6 mmol/L (3.5-5.1) Chloride Level 101 mmol/L (98-107) Carbon Dioxide Level 27 mmol/L (21-32) Anion Gap 9 (6-14) Blood Urea Nitrogen 22 mg/dL (8-26) Creatinine 1.0 mg/dL (0.7-1.3) Estimated GFR (Cockcroft-Gault) 88.3 Glucose Level 259 mg/dL (70-99) Calcium Level 8.5 mg/dL (8.5-10.1) Glucose (Fingerstick) 258 mg/dL (70-99) 421 mg/dL (70-99) Medications Current Medications Sodium Chloride 1,000 ml @ 1,000 mls/hr 1X ONCE IV Last administered on 20:28; Start 04/28/17 at 20:30; Stop 04/28/17 at 21:29; Status DC Sodium Chloride 1,000 ml @ 1,000 mls/hr 1X ONCE IV Last administered on 21:31; Start 04/28/17 at 20:45; Stop 04/28/17 at 21:44; Status DC Insulin Human Regular (NovoLIN R VIAL) 10 unit 1X ONCE SQ Last administered on 04/28/17 21:59; Start 04/28/17 at 22:00; Stop 04/28/17 at 22:01; Status DC Ondansetron HCl (Zofran) 4 mg PRN Q8HRS PRN IV NAUSEA/VOMITING; Start 04/28/17 at 21:30; Stop 04/29/17 at 21:29; Status DC Sertraline HCl (Zoloft) 25 mg HS PO Last administered on 04/29/17 21:25; Start 04/29/17 at 21:00 Insulin Aspart (NovoLOG) 0-9 UNITS TIDWMEALS SQ Last administered on 04/29/17 08:44; Start 04/29/17 at 08:00 Dextrose (Dextrose 50%-Water Syringe) 12.5 gm PRN Q15MIN PRN IV SEE COMMENTS; Start 04/29/17 at 00:15 Metformin HCl (Glucophage) 1,000 mg BIDWMEALS PO Last administered on 08:20; Start 04/29/17 at 08:00; Stop 04/29/17 at 11:31; Status DC Aspirin (Children'S Aspirin) 81 mg DAILYWBKFT PO Last administered on 08:27; Start 04/29/17 at 08:00 Lisinopril (Prinivil) 5 mg DAILY PO Last administered on 04/30/17 08:27; Start 04/29/17 at 09:00 Insulin Aspart (NovoLOG) 10 units TIDAC SQ ; Start 04/29/17 at 11:30; Stop 04/29 at 20:22; Status DC Insulin Aspart (NovoLOG) 20 units 1X ONCE SQ Last administered on 04/29/17 11 :42; Start 04/29/17 at 11:45; Stop 04/29/17 at 11:46; Status DC Insulin Detemir (Levemir) 20 units QHS SQ ; Start 04/29/17 at 21:00; Stop at 21:00; Status DC Atorvastatin Calcium (Lipitor) 20 mg QHS PO Last administered on 04/29/17 21: 25; Start 04/29/17 at 21:00 Insulin Aspart (NovoLOG) 20 units 1X ONCE SQ Last administered on 04/29/17 16 :44; Start 04/29/17 at 16:45; Stop 04/29/17 at 16:46; Status DC Insulin Aspart (NovoLOG) 20 units TIDAC SQ ; Start 04/30/17 at 07:30; Status Cancel Insulin Detemir (Levemir) 40 units QHS SQ Last administered on 04/29/17 21:32 ; Start 04/29/17 at 21:00 Insulin Aspart (NovoLOG) 20 units TIDAC SQ Last administered on 04/30/17 08:29 ; Start 04/29/17 at 20:45 Insulin Aspart (NovoLOG) 30 units 1X STAT SQ Last administered on 04/30/17 10 :39; Start 04/30/17 at 10:18; Stop 04/30/17 at 10:23; Status DC Glyburide (Diabeta) 5 mg BIDWMEALS PO Last administered on 04/30/17 10:42; Start 04/30/17 at 10:30 Active Scripts Active Reported Sertraline Hcl 25 Mg Tablet 25 Mg PO HS Vitals/I & O Vital Sign - Last 24 Hours 04/29/17 04/29/17 04/30/17 04/30/17 15:00 23:00 03:01 07:00 Temp 98.1 98.1 97.7 96.6 98.1 98.1 97.7 96.6 Pulse 88 74 76 93 Resp 20 20 20 18 B/P (MAP) 117/70 (86) 115/73 (87) 108/64 (79) 121/71 (88) Pulse Ox 96 100 97 98 O2 Delivery Room Air Room Air Room Air Room Air 04/30/17 04/30/17 08:00 08:27 Pulse 93 B/P (MAP) 121/71 O2 Delivery Room Air SALVADOR GIL III DO Apr 30, 2017 11:24
[2017-04-30] MEDS ORDERED: INSULIN ASPART 300 UNITS/3 ML INSULN.PEN SQ ONE (11:30)
[2017-04-30 14:57] VITALS: BP 184/96
[2017-04-30 15:00] VITALS: BP 118/68
== END 2017-04-30 18:10 | disposition home or self-care (01) | DRG 639 ==
LOC: ER 19:42 → 5 NORTH 21:15
PROVIDERS: ADMIT Internal Medicine Hematology & Oncology; ATTEND Internal Medicine Hematology & Oncology
DX: E11.65 Type 2 diabetes mellitus with hyperglycemia (principal); E78.5 Hyperlipidemia, unspecified; Z83.3 Family history of diabetes mellitus
CPT/HCPCS: 36415; 71010; 80048; 80061; 80076; 80307; 81001; 82553; 82962; 83036; 83735; 83880; 84443; 84484; 85025; 93005; 96360; 96361; 96372; J1815; J7030; 99285-25; G0479